=== PATIENT | female | born 1985 | race Caucasian/White ===

== ENCOUNTER 2016-09-17 13:43 | Emergency (ER) | payer BC, OTHER ==
[~2016-09-17] VITALS: Ht 165.1 cm; Wt 115.0 kg
[2016-09-17 13:44] VITALS: BP 138/89; PULSE 92; RESP 20; TEMP 98.3; O2SAT 100
--- NOTE | 2016-09-17 13:59 | PD ---
Physical Exam Time Seen by Provider: 13:57 Narrative 31 year old female with C/O vaginal bleeding 8 weeks . She denies Abd pain. Reports the bleeding as "spotting". LMP 07/29/16. Patient seen at triage desk. VS reviewed. Patient waiting bed placement. Data Data Last Documented VS Vital Signs Date Time Temp Pulse Resp B/P Pulse Ox O2 Delivery O2 Flow Rate FiO2 09/17/16 13:44 98.3 92 20 138/89 100 Room Air MDM Supervised Visit with VERONICA: No Scripts No Active Prescriptions or Reported Meds Sylvia Nguyen Sep 17, 2016 13:59
[2016-09-17 16:30] LABS: AUTOMATED NEUTROPHIL # 7.6 TH/MM3 (1.8-7.7); BASOPHIL % 0.3 % (0.0-2.0); EOSINOPHIL # 0.2 TH/MM3 (0-0.4); EOSINOPHIL % 1.5 % (0.0-4.0); HEMATOCRIT 39.5 % (35.0-46.0); HEMO FLAGS DIFF FINAL; LYMPH % 19.2 % (9.0-44.0); LYMPHOCYTE # 1.9 TH/MM3 (1.0-4.8); MEAN CELL VOLUME 81.5 FL (80.0-100.0); MEAN CORPUSCULAR HEMOGLOBIN 26.9 PG (27.0-34.0); MONO % 4.6 % (0.0-8.0); NEUT % 74.4 % (16.0-70.0); PLATELET COUNT 217 TH/MM3 (150-450); RED BLOOD COUNT 4.85 MIL/MM3 (4.00-5.30); RED CELL DISTRIBUTION WIDTH 14.2 % (11.6-17.2); WHITE BLOOD COUNT 10.2 TH/MM3 (4.0-11.0)
[2016-09-17] MEDS ORDERED: KETOROLAC TROMETHAMINE 30 MG/ML (IVP) VIAL IV PUSH ONE (16:30)
[2016-09-17] MEDS ORDERED: SODIUM CHLOR 0.9% 1000 ML INJ 1,000 ML IV ONE (16:30)
[2016-09-17 16:40] LABS: BACTERIA, URINE RARE /hpf; BLOOD, URINE NEG (NEG); COMMENT (UR) CULT NOT INDICATED; CULTURE IF INDICATED CULT NOT INDICATED; GLUCOSE,URINE NEG (NEG); KETONE, URINE 10 mg/dL (NEG); NITRITE,URINE NEG (NEG); URINE COLOR LIGHT-YELLOW (YELLW/STRAW)
[2016-09-17 16:50] LABS: BICARBONATE 24.3 MEQ/L (21.0-32.0); POTASSIUM 3.2 MEQ/L (3.5-5.1)
[2016-09-17] MEDS ORDERED: MACR100C2 PO (16:57)
--- NOTE | 2016-09-17 16:57 | PD ---
HPI Chief Complaint: Related Problem Time Seen by Provider: 15:30 Travel History International Travel<30 days: No Contact w/Intl Traveler<30days: No Traveled to known affect area: No History of Present Illness HPI Patient is a 31-year-old female, approximately 8 weeks , who comes in complaining of vaginal spotting. She noticed the spotting today. She has not had any abdominal pain. She denies nausea or vomiting. She denies headache or lightheadedness. She says that she has had 2 miscarriages in the past, most recently 3 years ago at 4 weeks. PFSH Past Medical History Blood Disorders: No Cancer: No Cardiovascular Problems: No Endocrine: No Genitourinary: No Immune Disorder: No Musculoskeletal: No Neurologic: No Psychiatric: No Reproductive: No Respiratory: No Tetanus Vaccination: > 5 Years Influenza Vaccination: Yes ?: LMP: 07/29/16 : 3 Para: 1 Miscarriage: 1 Dilation and Curettage (D&C): Yes Past Surgical History Abdominal Surgery: No Cardiac Surgery: No Genitourinary Surgery: No Pacemaker: No Thoracic Surgery: No Other Surgery: Yes (LT. WRIST SX, sinus sx) Social History Alcohol Use: No Tobacco Use: No Substance Use: No Allergies-Medications (Allergen,Severity, Reaction): Coded Allergies: No Known Allergies (Verified , 07/16/13) Reported Meds & Prescriptions Reported Meds & Active Scripts Active Macrobid (Nitrofurantoin Monohydrate Macrocrystals) 100 Mg Capsule 100 Mg PO BID 7 Days Review of Systems Except as stated in HPI: all other systems reviewed are Neg General / Constitutional: No: Fever, Chills HENT: No: Headaches, Lightheadedness Cardiovascular: No: Chest Pain or Discomfort Respiratory: No: Shortness of Breath Gastrointestinal: No: Nausea, Vomiting, Abdominal Pain Genitourinary: Positive: Vaginal Bleeding Musculoskeletal: No: Myalgias Skin: No Rash Neurologic: No: Weakness, Dizziness Physical Exam Narrative GENERAL: Awake and alert, in no acute distress. SKIN: Focused skin assessment warm/dry. HEAD: Atraumatic. Normocephalic. EYES: Pupils equal and round. No scleral icterus. No injection or drainage. ENT: No nasal bleeding or discharge. Mucous membranes pink and moist. NECK: Trachea midline. No JVD. CARDIOVASCULAR: Regular rate and rhythm. No murmur appreciated. RESPIRATORY: No accessory muscle use. Clear to auscultation. Breath sounds equal bilaterally. GASTROINTESTINAL: Abdomen soft, non-tender, nondistended. : Performed in the presence of a female nurse. No bleeding, os is closed. No CMT. Small amount of white discharge. MUSCULOSKELETAL: No obvious deformities. No clubbing. No cyanosis. No edema. NEUROLOGICAL: Awake and alert. No obvious cranial nerve deficits. Motor grossly within normal limits. Normal speech. PSYCHIATRIC: Appropriate mood and affect; insight and judgment normal. Data Data Last Documented VS Vital Signs Date Time Temp Pulse Resp B/P Pulse Ox O2 Delivery O2 Flow Rate FiO2 09/17/16 13:44 98.3 92 20 138/89 100 Room Air Orders Complete Blood Count With Diff (09/17/16 15:31) Basic Metabolic Panel (Bmp) (09/17/16 15:31) Beta Hcg (Quant/Titer) (09/17/16 15:31) Urinalysis - C+S If Indicated (09/17/16 15:31) Ed Poc Ultrasound (09/17/16 ) Ed Urine Pregnancytest Poc (09/17/16 15:31) Ketorolac Inj (Toradol Inj) (09/17/16 16:30) Sodium Chlor 0.9% 1000 Ml Inj (Ns 1000 M (09/17/16 16:30) Potassium Chloride (Kcl) (09/17/16 17:15) Labs Laboratory Tests Test 09/17/16 15:52 White Blood Count 10.2 TH/MM3 Red Blood Count 4.85 MIL/MM3 Hemoglobin 13.1 GM/DL Hematocrit 39.5 % Mean Corpuscular Volume 81.5 FL Mean Corpuscular Hemoglobin 26.9 PG Mean Corpuscular Hemoglobin 33.0 % Concent Red Cell Distribution Width 14.2 % Platelet Count 217 TH/MM3 Mean Platelet Volume 9.1 FL Neutrophils (%) (Auto) 74.4 % Lymphocytes (%) (Auto) 19.2 % Monocytes (%) (Auto) 4.6 % Eosinophils (%) (Auto) 1.5 % Basophils (%) (Auto) 0.3 % Neutrophils # (Auto) 7.6 TH/MM3 Lymphocytes # (Auto) 1.9 TH/MM3 Monocytes # (Auto) 0.5 TH/MM3 Eosinophils # (Auto) 0.2 TH/MM3 Basophils # (Auto) 0.0 TH/MM3 CBC Comment DIFF FINAL Differential Comment Urine Color LIGHT-YELLOW Urine Turbidity CLEAR Urine pH 5.0 Urine Specific [place] 1.003 Urine Protein NEG mg/dL Urine Glucose (UA) NEG mg/dL Urine Ketones 10 mg/dL Urine Occult Blood NEG Urine Nitrite NEG Urine Bilirubin NEG Urine Urobilinogen LESS THAN 2.0 MG/DL Urine Leukocyte Esterase NEG Urine WBC LESS THAN 1 /hpf Urine Bacteria RARE /hpf Microscopic Urinalysis Comment CULT NOT INDICATED Sodium Level 136 MEQ/L Potassium Level 3.2 MEQ/L Chloride Level 101 MEQ/L Carbon Dioxide Level 24.3 MEQ/L Anion Gap 11 MEQ/L Blood Urea Nitrogen 6 MG/DL Creatinine 0.63 MG/DL Estimat Glomerular Filtration 110 ML/MIN Rate Random Glucose 81 MG/DL Calcium Level 8.6 MG/DL Human Chorionic Gonadotropin, 92252 MIU/ML Quant MDM Medical Decision Making Medical Screen Exam Complete: Yes Emergency Medical Condition: Yes Medical Record Reviewed: Yes Differential Diagnosis Threatened versus completed versus missed versus UTI Narrative Course Patient is a 31-year-old female who comes in complaining of vaginal spotting in . Exam shows no acute abnormalities. IV established, labs sent. Hemoglobin is within normal limits. Patient is blood type A-positive from previous records. There is bacteria in her urine. She'll be discharged with a prescription for Macrobid. Bedside ultrasound performed shows an IUP with appropriate heart rate. Patient is advised to drink plenty of water. Practice pelvic rest. Follow-up with [facility]. Return to the emergency department as needed for any worsening symptoms. Procedures Procedure Narrative Emergency Department Pelvic ultrasound was performed with patient consent. The curvilinear probe was used in the transverse and sagittal views within the suprapubic region revealing single intrauterine . heart rate was 133. No free fluid in the pelvis. Diagnosis Primary Impression: Threatened Additional Impression: UTI (urinary tract infection) during Qualified Code: O23.41 - UTI (urinary tract infection) during , first trimester Patient Instructions: General Instructions, Threatened Miscarriage (ED), Urinary Tract Infection in (ED) Additional Instructions: Follow up with [facility]ARE [facility]PRES[facility]. Drink plenty of fluids. Practice pelvic rest for the next few weeks. Return to the emergency department as needed for any worsening symptoms. Take all of her antibiotic. Scripts Nitrofurantoin Monohydrate Macrocrystals (Macrobid)100 Mg [id number] Mg PO BID 7 Days Ref 0 Prov:Colette Ramires MD 09/17/16 Disposition: 01 DISCHARGE HOME Condition: Stable Colette Ramires MD Sep 17, 2016 16:57
[2016-09-17] MEDS ORDERED: POTASSIUM CHLORIDE 20 MEQ CONTROLLED RELEASE TAB PO ONE (17:15)
== END 2016-09-17 17:41 | disposition home or self-care (01) ==
LOC: NEPD 13:43
DX: O20.0 Threatened abortion (principal); O23.41 Unspecified infection of urinary tract in pregnancy, first trimester; Z3A.08 8 weeks gestation of pregnancy
CPT/HCPCS: 80048; 81001; 84702; 84703; 85025; 96360; 99285; J7030

== ENCOUNTER → 2016-12-29 | Outpatient (CLI) | payer OTHER ==
[~2016-12-29] MED LIST: MACR100C2 PO
== END ==
LOC: HPND 10:08
PROVIDERS: ATTEND Obstetrics & Gynecology
DX: Z34.82 Encounter for supervision of other normal pregnancy, second trimester (principal)
CPT/HCPCS: 76805

== ENCOUNTER 2017-03-24 17:50 | Emergency (ER) | payer OTHER ==
[~2017-03-24] VITALS: Ht 165.1 cm; Wt 131.1 kg
--- NOTE | 2017-03-24 19:09 | PD ---
HPI Chief Complaint Cramping, contractions Travel History International Travel<30 Days: No Contact w/Intl Traveler<30Days: No Known Affected Area: No History of Present Illness HPI 31-year-old 0-1, IUP at 34.0 care, complicated by obesity, GERD The patient presents complaining of pelvic cramping for the past 1-2 weeks. She reports that today this changed and she was feeling contractions about 4 times per hour over 2 hour time period. She denies any aggravating or alleviating factors. She reports these have improved. She denies any attempted treatments. The patient was not sure if she maybe had a small amount of leaking of clear fluid around the same time. She reports good movement. She denies any leaking of fluid or vaginal bleeding. She reports she does not drink very much water. Weeks Gestation: 34 Para: 1 : 4 History Past Medical History Narrative Medical Obesity, GERD Obstetric History Obstetric History SAB 2 1 Family History Family History: Negative Social History Alcohol Use: No Tobacco Use: No Substance Abuse: No Allergies-Medications (Allergen,Severity, Reaction): Coded Allergies: No Known Allergies (Verified , 07/16/13) Home Meds Discontinued Scripts Nitrofurantoin Monohydrate Macrocrystals (Macrobid) 100 Mg Capsule, 100 MG PO BID for Infection for 7 Days, CAP 0 Refills Prov:Colette Ramires MD 09/17/16 Physical Exam Narrative GENERAL: Well-nourished, well-developed patient. SKIN: Warm and dry. HEAD: Normocephalic and atraumatic. EYES: No scleral icterus. No injection or drainage. ENT: No nasal drainage noted. Mucous membranes pink. Airway patent. NECK: Supple, trachea midline. No JVD. CARDIOVASCULAR: Regular rate and rhythm without murmurs, gallops, or rubs. RESPIRATORY: Breath sounds equal bilaterally. No accessory muscle use. BREASTS: Bilateral exam showed no masses , no retractions, no nipple discharge. ABDOMEN/GI: Abdomen soft, non-tender, bowel sounds present, no rebound, no guarding Gravid GENITOURINARY: External Genitalia: intact and normal in appearance normal BUS. No cervical or vaginal masses appreciated, physiologic discharge, amniosure was performed which was negative. SVE was 1/thick/high and posterior. FHT's: heart tones in the 120s with moderate long-term variability, good accelerations, no decelerations. This category 1 heart rate tracing and reactive NST EXTREMITIES: No cyanosis or edema. BACK: Nontender without obvious deformity. No CVA tenderness. NEUROLOGICAL: Awake and alert. Motor and sensory grossly within normal limits. Five out of 5 muscle strength in all muscle groups. Normal speech. Psychiatric: Grossly normal memory and affect Musculoskeletal: Grossly normal range of motion, gait, muscle strength MDM Plan Assessment/plan: 1. IUP at 34 weeks 2. No evidence of PROM: PROM precautions 3. Cramping and irregular contractions: No evidence of active labor with cervical exam 1/thick/high and no regular contractions, strict labor precautions 4. well-being: Reassuring testing with reactive NST and category 1 heart rate tracing. kick counts daily. 5. Obesity 6. GERD 7. UA: UA appears concentrated with 40 of ketones, encouraged good hydration. Patient declined IV in route states she'll drink more water. Counseled on appropriate water volume. 8. Follow up with primary OB in 2-3 days or sooner if needed Diagnosis Diagnosis: Primary Impression: 34 weeks gestation of Additional Impression: False labor before 37 completed weeks of gestation during in third trimester, antepartum Disposition: 01 DISCHARGE HOME Condition: Riya Smith MD Mar 24, 2017 19:09
[2017-03-24 19:27] LABS: BACTERIA, URINE RARE /hpf; BILIRUBIN, URINE NEG (NEG); BLOOD, URINE SMALL (NEG); CALCIUM OXALATE CRYSTALS,URINE OCC /hpf; GLUCOSE,URINE NEG (NEG); KETONE, URINE 40 mg/dL (NEG); MUCUS URINE FEW /lpf (OCC); NITRITE,URINE NEG (NEG); PH, URINE 5.5 (5.0-8.5); SQUAMOUS EPITHELIAL CELL URINE 1 /hpf (0-5); URINE COLOR YELLOW (YELLW/STRAW); URINE LEUKOCYTE ESTERASE NEG (NEG)
--- NOTE | 2017-03-24 19:56 | PD ---
History of Present Illness History of Present Illness NST report Indications: IUP at 34 weeks, obesity, GERD, abdominal pain/cramping and contractions NST with heart rate baseline in the 120s with moderate long-term variability, good accelerations, no decelerations noted. This is a reactive NST and category 1 heart rate tracing. Final diagnosis:IUP at 34 weeks, obesity, GERD, abdominal pain/cramping and contractions, dehydration, reassuring well-being with reassuring testing Follow-up: As clinically indicated Riya Crowley MD Mar 24, 2017 19:56
== END 2017-03-24 21:35 | disposition home or self-care (01) ==
LOC: HOBED 17:50
DX: O47.03 False labor before 37 completed weeks of gestation, third trimester (principal); O99.613 Diseases of the digestive system complicating pregnancy, third trimester; K21.9 Gastro-esophageal reflux disease without esophagitis; O99.213 Obesity complicating pregnancy, third trimester; E66.9 Obesity, unspecified; Z3A.34 34 weeks gestation of pregnancy
CPT/HCPCS: 81001; 84112; 99284

== ENCOUNTER 2017-04-28 10:21 | Inpatient (IN) | payer OTHER ==
[2017-04-28] VITALS (14 sets, daily range): BP systolic 114–139; BP diastolic 61–85; PULSE 63–80; RESP 18–20; TEMP 97.9–98.1; O2SAT 97–99
[~2017-04-28] VITALS: Ht 165.1 cm; Wt 132.0 kg
[2017-04-28 11:49] LABS: AUTOMATED NEUTROPHIL # 5.2 TH/MM3 (1.8-7.7); BASOPHIL % 0.6 % (0.0-2.0); EOSINOPHIL # 0.1 TH/MM3 (0-0.4); EOSINOPHIL % 1.4 % (0.0-4.0); HEMATOCRIT 35.4 % (35.0-46.0); LYMPH % 26.6 % (9.0-44.0); LYMPHOCYTE # 2.1 TH/MM3 (1.0-4.8); MEAN CELL VOLUME 77.4 FL (80.0-100.0); MEAN CORPUSCULAR HEMOGLOBIN 26.3 PG (27.0-34.0); MEAN PLATELET VOLUME 10.3 FL (7.0-11.0); MONO % 5.8 % (0.0-8.0); MONOCYTE # 0.5 TH/MM3 (0-0.9); NEUT % 65.6 % (16.0-70.0); PLATELET COUNT 229 TH/MM3 (150-450); RED BLOOD COUNT 4.57 MIL/MM3 (4.00-5.30); RED CELL DISTRIBUTION WIDTH 16.8 % (11.6-17.2); WHITE BLOOD COUNT 7.9 TH/MM3 (4.0-11.0)
[2017-04-28 11:54] LABS: BACTERIA, URINE MOD /hpf; BILIRUBIN, URINE NEG (NEG); BLOOD, URINE NEG (NEG); GLUCOSE,URINE NEG (NEG); KETONE, URINE 10 mg/dL (NEG); MUCUS URINE FEW /lpf (OCC); NITRITE,URINE NEG (NEG); PH, URINE 5.5 (5.0-8.5); SQUAMOUS EPITHELIAL CELL URINE 10 /hpf (0-5); URINE COLOR YELLOW (YELLW/STRAW); URINE LEUKOCYTE ESTERASE NEG (NEG)
[2017-04-28] MEDS ORDERED: LACTATED RINGER'S 1000 ML IV ONE (12:00)
[2017-04-28] MEDS ORDERED: ceFAZolin 2 GM PREMIX 50 ML IV SCH (12:00)
[2017-04-28] MEDS ORDERED: CITRIC ACID-SODIUM CITRATE LIQ 30 ML UDC PO SCH (12:00)
[2017-04-28] MEDS: LACTATED RINGER'S 1000 ML IV SCH ×2 (13:43→18:40)
[2017-04-28] MEDS ORDERED: MORPHINE SULFATE PF 5 MG/10 ML VIAL ONE (16:51)
[2017-04-28] MEDS ORDERED: ACETAMINOPHEN 1000 MG/100 ML 100 ML IV ONE ×2 (18:38→18:52)
[2017-04-28] MEDS ORDERED: OXYTOCIN 30 UNITS-500ML PREMIX 500 ML ONE (18:38)
[2017-04-28] MEDS ORDERED: KETOROLAC TROMETHAMINE 60 MG/2 ML (IM) VIAL IM PRN ×2 (19:15)
[2017-04-28] MEDS ORDERED: OXYTOCIN 30 UNITS-500ML PREMIX 500 ML IV ONE (19:30)
[2017-04-28] MEDS ORDERED: SODIUM CHLORIDE 0.9% FLUSH 10 ML FLUSH IV FLUSH PRN (19:30)
[2017-04-28] MEDS ORDERED: IBUPROFEN 600 MG TAB PO PRN (19:30)
--- NOTE | 2017-04-28 19:31 | PD.OB.DELI ---
Procedure Note Section Procedure Pre Op Diagnosis: (1) Macrosomia affecting management of mother in third trimester, single gestation (2) History of maternal fourth degree perineal laceration, currently in third trimester Post Op Diagnosis: (1) History of maternal fourth degree perineal laceration, currently in third trimester (2) Macrosomia affecting management of mother in third trimester, single gestation Performed by Keeley Hardin MD Procedure: Primary Low Transverse Sec Indication for delivery: Other (prior 4th degree perineal laceration and macrosomia) Informed consent obtained: For anesthesia, For procedure Confirmed correct: Patient, Procedure, Site, Time-out taken Anesthesia: Spinal Medication prior to procedure: As documented in eMAR Urinary catheter: Inserted using sterile technique Sterile preparation: Duraprep Position: Supine with wedge to left side Operative Features Skin Incision: Pfannenstiel Uterine Incision: Low transverse w/knife / blunt ext Membranes Ruptured: Artificially, Appearance of fluid (clear) Presentation: Occiput anterior Delivery date: Apr 28, 2017 Delivery time: 17:34 Delivery of infant: Assisted (with vacuum, secondary to floating vertex) Infant: Male, Single One Minute : 8 Five Minute : 9 Weight: 7-15 Status of : Viable, Cord blood, Nursery present Placenta delivered: Intact Medications: Antibiotics, Oxytocin Estimated blood loss: 700 ml Procedure tolerated: Well Maternal Condition: Stable Condition: Stable Procedure in detail After informed consent was obtained, she consented. A pfannenstiel incision is made in the usuall fashion. The underlying layer of fascia is reached using the Bovie. The fascia is incised in the midline and the incision is extended laterally. Chapin clamps were used to elevate the fascia superiorly and inferiorly and the rectus muscles are dissected off. The peritoneum was identified and entered sharply. The bladder blade was inserted. The vesicouterine peritoneum was identified, tented open and entered sharply. The bladder blade was then reinserted. A transverse incision was made over the lower uterine segment to layer just exposing membranes; these were ruptured for clear fluid. The uterine incision was extended laterally digitally. The infant vertex is delivered with the vacuum atraumatically through the incision followed by the remainder of the 's body. The cord is doubly clamped and cut. The is passed off to the waiting nursery team. Once this was done, attention is then turned back to the uterine field. The placenta is removed manually intact with three-vessel cord. The uterus was exteriorized, cleared of all clot and debris. The uterine incision was repaired using 1 Chromic suture in a running locked fashion. Attention was then turned back to the uterine incision which remained hemostatic. The uterus was returned to the abdominal cavity. The gutters were cleared of all clot and debris. Interceed was placed over the incision. The rectus muscles were re-approximated using 0 Chromic suture in interrupted fashion. The fascia was re-approximated using 1 Vicryl suture in a running fashion. The subcutaneous fat is irrigated and made hemostatic and re- approximated using 3-0 Chromic suture. The skin is closed using 3-0 Monocryl suture. Keeley Hardin MD Apr 28, 2017 19:31
[2017-04-28] MEDS ORDERED: ONDANSETRON HCL 4 MG/2 ML VIAL IV PUSH PRN (19:45)
[2017-04-28] MEDS ORDERED: OXYTOCIN 10 UNIT/ML AMP XX SCH (19:45)
[2017-04-28] MEDS ORDERED: ZOLPIDEM TARTRATE 5 MG TAB PO PRN (21:00)
[2017-04-29] VITALS (7 sets, daily range): BP systolic 110–129; BP diastolic 67–78; PULSE 74–112; RESP 16–20; TEMP 98–98.8; O2SAT 97–99
[2017-04-29] MEDS ORDERED: LACTATED RINGER'S 1000 ML INJ 1,000 ML IV SCH (00:14)
[2017-04-29] MEDS ORDERED: OXYTOCIN 30 UNITS-500ML PREMIX 500 ML IV PRN (05:15)
[2017-04-29] MEDS: oxyCODONE/ACETAMINOPHEN 5 MG/325 MG TAB PO PRN ×4 (05:49→19:25)
[2017-04-29] MEDS: IBUPROFEN 600 MG TAB PO PRN ×3 (05:49→19:25)
[2017-04-29] MEDS: DOCUSATE SODIUM 50 MG/SENNA 8.6 MG TAB PO PRN ×2 (05:50→19:26)
[2017-04-29] MEDS: SIMETHICONE 80 MG CHEWABLE TAB PO PRN ×3 (05:50→19:25)
[2017-04-29 05:57] LABS: HEMATOCRIT 31.5 % (35.0-46.0); HEMOGLOBIN 10.4 GM/DL (11.6-15.3); MEAN CELL VOLUME 77.2 FL (80.0-100.0); MEAN CORPUSCULAR HEMOGLOBIN 25.6 PG (27.0-34.0); MEAN CORPUSCULAR HGB CONC 33.1 % (32.0-36.0); MEAN PLATELET VOLUME 9.6 FL (7.0-11.0); PLATELET COUNT 179 TH/MM3 (150-450); RED BLOOD COUNT 4.08 MIL/MM3 (4.00-5.30); RED CELL DISTRIBUTION WIDTH 16.5 % (11.6-17.2); WHITE BLOOD COUNT 8.7 TH/MM3 (4.0-11.0)
[2017-04-29] MEDS: LACTATED RINGER'S 1000 ML IV SCH ×3 (08:00→20:23)
[2017-04-29] MEDS: SODIUM CHLORIDE 0.9% FLUSH 10 ML FLUSH IV FLUSH SCH ×3 (08:25→20:24)
[2017-04-29 08:56] LABS: BANDS 2 % (0-6); BASOPHILS 1 % (0-2); LYMPHOCYTES 17 % (9-44); MONOCYTES 5 % (0-8); NEUTROPHIL # MANUAL DIFF 6.6 TH/MM3 (1.8-7.7); POLYS (SEG NEUTROPHILS) 74 % (16-70)
--- NOTE | 2017-04-29 10:36 | HHI.OB ---
Subjective Post Operative Day: 1 Remarks pain controlled, mod lochia, +void/flatus, chano po Objective Vitals/I&O Vital Signs Date Time Temp Pulse Resp B/P (MAP) Pulse Ox O2 Delivery O2 Flow Rate FiO2 04/29/17 08:21 98.4 94 20 110/75 (87) 04/29/17 04:15 74 18 121/75 (90) 04/29/17 04:15 98.0 98 04/29/17 03:15 16 04/29/17 01:15 16 04/28/17 23:29 98.0 79 18 119/62 (81) 98 04/28/17 22:15 18 04/28/17 20:56 97.9 04/28/17 20:56 63 18 135/81 (99) 97 04/28/17 19:20 97.9 04/28/17 19:20 133/64 (87) 04/28/17 19:20 70 18 97 04/28/17 19:00 126/67 (86) 04/28/17 18:53 71 04/28/17 18:53 20 97 04/28/17 18:46 117/62 (80) 04/28/17 18:45 99 04/28/17 18:37 72 20 04/28/17 18:32 114/61 (78) 04/28/17 18:24 72 18 99 04/28/17 18:24 119/65 (83) 04/28/17 18:23 97.9 04/28/17 15:20 80 139/85 (103) 04/28/17 15:19 98.1 04/28/17 15:19 18 Result Diagram: 04/29/17 0459 Objective Remarks GENERAL: Well-nourished, well-developed patient. CARDIOVASCULAR: Regular rate and rhythm without murmurs, gallops, or rubs. RESPIRATORY: Breath sounds equal bilaterally. No accessory muscle use. ABDOMEN/GI: Abdomen soft, non-tender, bowel sounds present. Incision: Clean, dry and intact. Fundus: Firm, non-tender at umbilicus. GENITOURINARY: Light to moderate bleeding. EXTREMITIES: No cyanosis or edema, non-tender, without signs of DVT. Medications and IVs Current Medications Medications (Trade) Dose Ordered Sig/Dolores Route Start Time Stop Time Status Last Admin Lactated Ringer's 1,000 ml @ 150 mls/hr Q6H40M IV 04/28/17 12:00 04/28/17 13:43 (Bicitra Liq) 30 ml [employer]PER[employer]OR SAMPLE PREPARATION PO 04/28/17 12:00 05/01/17 11:59 04/28/17 16:49 Cefazolin Sodium/ Dextrose 50 ml @ 100 mls/hr [employer]PER[employer] SAMPLE PREPARATION IV 04/28/17 12:00 05/01/17 11:59 04/28/17 16:49 (Pitocin Inj) 20 units UNSCH X1 XX 04/28/17 19:45 04/30/17 19:44 Lactated Ringer's 1,000 ml @ 100 mls/hr Q10H IV 04/29/17 00:14 04/29/17 20:13 Oxytocin 500 ml @ 100 mls/hr UNSCH X1 PRN IV 04/29/17 05:15 04/30/17 05:14 (NS Flush) 2 ml BID IV FLUSH 04/28/17 21:00 (NS Flush) 2 ml UNSCH PRN IV FLUSH 04/28/17 19:30 (Mylicon Chew) 80 mg QID PRN PO 04/28/17 19:30 04/29/17 05:50 (Toradol Inj) 60 mg UNSCH X1 PRN IM 04/28/17 19:15 04/29/17 19:14 (Toradol Inj) 30 mg Q6H PRN IM 04/28/17 19:15 04/29/17 19:14 04/28/17 22:08 (Percocet 5-325 Mg) 1 tab Q4H PRN PO 04/28/17 19:30 04/29/17 09:57 (Percocet 5-325 Mg) 2 tab Q4H PRN PO 04/28/17 19:30 (Rachel-Colace) 2 tab Q12H PRN PO 04/28/17 19:45 04/29/17 05:50 (Ambien) 5 mg HS PRN PO 04/28/17 21:00 (M-M-R Ii Inj) 0.5 ml ONCE ONCE SQ 04/29/17 16:00 04/29/17 16:01 (Boostrix Inj) 0.5 ml ONCE ONCE IM 04/29/17 16:00 04/29/17 16:01 04/29/17 05:27 (Zofran Inj) 4 mg Q6H PRN IV PUSH 04/28/17 19:45 (Motrin) 600 mg Q6H PRN PO 04/29/17 05:45 04/29/17 05:49 Assessment/Plan Problem List: (1) delivery, delivered, current hospitalization ICD Codes: O82 - Encounter for delivery without indication Plan: routine po care Keeley Hardin MD Apr 29, 2017 10:36
[2017-04-29] MEDS ORDERED: DIPHTH/TETANUS/ACEL PERTUSSIS (BOOSTER) 0.5 ML VIAL/PFS IM ONE (16:00)
[2017-04-29] MEDS ORDERED: MEASLES, MUMPS, RUBELLA VACCINE 0.5 ML VIAL SQ ONE (16:00)
[2017-04-29] MEDS ORDERED: IBUPROFEN 600 MG TAB PO PRN (21:00)
[2017-04-30] MEDS: IBUPROFEN 600 MG TAB PO PRN ×2 (01:07→08:03)
[2017-04-30] MEDS: oxyCODONE/ACETAMINOPHEN 5 MG/325 MG TAB PO PRN ×3 (01:08→12:26)
[2017-04-30] MEDS: LACTATED RINGER'S 1000 ML IV SCH (03:11)
[2017-04-30 08:00] VITALS: BP 114/74; PULSE 87; RESP 16; TEMP 98
[2017-04-30] MEDS: SIMETHICONE 80 MG CHEWABLE TAB PO PRN (08:03)
[2017-04-30] MEDS: DOCUSATE SODIUM 50 MG/SENNA 8.6 MG TAB PO PRN (08:03)
[2017-04-30] MEDS ORDERED: IBUP-232 PO (12:54)
[2017-04-30] MEDS ORDERED: Simethicone Chew PO (12:54)
[2017-04-30] MEDS ORDERED: OXYC1TAB63 PO (12:54)
--- NOTE | 2017-04-30 12:59 | HHI.DS ---
Admission Date Apr 28, 2017 at 10:21 Discharge Date: Apr 30, 2017 Admitting Diagnosis IUP @ TERM, hx of prior 4th degree laceration and macrosomia Diagnosis: Delivery Date: Apr 28, 2017 : Primary Reason: hx of prior 4th degree laceration and macrosomia Infant: Male, Single Hospital Course pt presented for primary . by pod 2, pt was voiding, passing gas with good pain control and stable for d/c home. Pt Condition on Discharge: Stable Discharge Disposition: Discharge Home Discharge Instructions Diet Instructions: As Tolerated, No Restrictions Additional Diet Instructions: Drink at least 8 - 16 oz bottles of water a day Activities You Can Perform: Shower Only-No Bath Activities to Avoid: Prolonged Standing, Strenuous Activity, Sexual Activity Additional Activity Instruc.: No driving until off pain medications Do not lift anything heavier than your baby in an carrier Keeley Hardin MD Apr 30, 2017 12:59
== END 2017-04-30 14:34 | disposition home or self-care (01) | DRG 766 ==
LOC: H2EB 10:21 → H1EA 19:39
PROVIDERS: ADMIT Obstetrics & Gynecology; ATTEND Obstetrics & Gynecology
PROC: 10D00Z1 Extraction of Products of Conception, Low, Open Approach (ICD-10-PCS; principal; 2017-04-28)
PROC: 3E0P05Z Introduction of Adhesion Barrier into Female Reproductive, Open Approach (ICD-10-PCS; 2017-04-28)
DX: O36.63X0 Maternal care for excessive fetal growth, third trimester, not applicable or unspecified (principal); Z37.0 Single live birth; Z3A.39 39 weeks gestation of pregnancy
CPT/HCPCS: 59025; 80307; 81001; 85007; 85025; 85027; 86850; 86900; 86901; 87086; 90715; C1765; J0131; J0690; J1885; J2274; J2590; J7120